=== PATIENT | female | born 1975 | race Hispanic/Latino ===

== ENCOUNTER 2024-01-31 15:08 | Emergency (ER) | payer MEDICAID, SELFPAY ==
--- NOTE | ~2024-01-31 | CT_ITS ---
EXAMINATION: CT abdomen pelvis w con DATE: 01/31/2024 18:00 INDICATION: LLQ/left pelvic pain; vag bleeding TECHNIQUE: Computed tomography (CT) of the abdomen and pelvis was performed with 100 mL Omnipaque-350 intravenous contrast. Automated exposure control and iterative reconstruction technique were employe d. The dose-length product was 782.45 mGy-cm. COMPARISON: 01/15/2024. FINDINGS: Lower thorax: Unremarkable Liver: Normal. Biliary/Gallbladder: Gallbladder is normal. No bile duct dilation. Pancreas: No mass or duct dilation. Spleen: Normal. Adrenals:No mass. Kidneys: No suspicious mass, obstructing stone, or hydronephrosis. GI tract: No small or large bowel dilation. Normal appendix. Mesentery/Peritoneum: No ascites, mass, or free air. Retroperitoneum: No mass. Atherosclerotic abdominal aortic and/or arterial calcifications. Pelvis: Pelvic organs are within normal limits. Simple appearing 1.4 cm left ovarian cyst. Soft Tissu es: Soft tissues and body wall unremarkable. Small uncomplicated fat-containing umbilical hernia. Bones: No acute osseous finding. IMPRESSION: No acute abdominopelvic process detected. Reviewed, dictated and finalized at location K.
[2024-01-31 15:12] VITALS: BP 118/67; PULSE 108; RESP 19; TEMP 36.8; O2SAT 96
--- NOTE | 2024-01-31 15:54 | ED.FEMALEGU ---
HPI - Female Genitourinary General Chief complaint: Vaginal Bleeding Stated complaint: vaginal bleeding Time Seen by Provider: 01/31/24 15:49 Source: patient and other (partner/support person) Limitations: language barrier (Croatian speaking) History of Present Illness HPI Narrative: (Attempted multiple times to get manager infrastructure software to work but network connection error thus interpretation done through patient's friend/support person and [employer] translate.) 48 yo female reports pain in her LLQ/left pelvis as well as dizziness since 01/26/24. Her LMP was 8/7 and stopped 01/22 and then vaginal bleeding restarted again 01/25. She has been soaking multiple pads. She changed her pad 6x since 09. She has been passing small clots. No dysuria. No prior colonoscopy. Related Data Allergies Allergy/AdvReac Type Severity Reaction Status Date / Time No Known Allergies Allergy Verified 01/31/24 15:31 Exam Narrative: GENERAL: Well-appearing, well-nourished, and in no acute distress. HEAD: Normocephalic, atraumatic. EYES: Non injected, non icteric ENT: Nares clear, no rhinorrhea or epistaxis. NECK: Supple. CHEST: Speaking in full sentences. No respiratory distress. HEART: Regular rate and rhythm. ABDOMEN: Soft, nondistended. : Mild TTP in left hemipelvis. No rigidity/guarding. Normal external genitalia. Some blood in vaginal vault. Normal vaginal mucosa. No CMT or adnexal motion tenderness. EXTREMITIES: Normal range of motion. No lower extremity edema. SKIN: Warm, dry, no rash. NEURO: No focal deficits. Alert and oriented x3. PSYCH: Normal mood and affect. Course Vital Signs Vital signs: Vital Signs Temperature 98.2 F 01/31/24 15:12 Pulse Rate 108 H 01/31/24 15:12 Respiratory Rate 19 01/31/24 15:12 Blood Pressure 118/67 01/31/24 15:12 Pulse Oximetry 96 01/31/24 15:12 Oxygen Delivery Room Air 01/31/24 15:12 Temperature 97.6 F 01/31/24 19:47 Pulse Rate 82 01/31/24 19:47 Respiratory Rate 18 01/31/24 19:47 Blood Pressure 115/76 01/31/24 19:47 Pulse Oximetry 98 01/31/24 19:47 Oxygen Delivery Room Air 01/31/24 15:12 MDM - Female Genitourinary MDM Narrative Medical decision making narrative: After obtaining the patient's history and performing a physical exam, a serum test was obtained which was negative for . She is a 48 year old who presents with vaginal bleeding most likely of non emergent etiology. In the ED she is afebrile with vital signs notable initially for tachycardia. She is not anemic. DIFFERENTIAL DIAGNOSIS The patient had a benign pelvic exam, patient's bleeding thought to be secondary to fibroids or other non emergent cause of abnormal uterine bleeding. Unlikely hemorrhagic cystitis: No dysuria, grossly visualized blood per vagina. Unlikely hypothyroidism: Normal TSH Unlikely coagulopathy: platelets normal Unlikely traumatic vaginal bleeding: pelvic exam shows no signs of trauma, no foreign body visualized. Unlikely PID: no Chandelier sign. Unlikely other infectious etiology: nonseptic appearance Also considered diverticulitis with colovaginal fistula: Imaging does not show evidence of this CT imaging negative for acute process but does show L simple ovarian cyst. Plan discharge home with return precautions, instructions for prompt outpatient follow up. Provided referral to an ObGyn. Provided Rx for acetaminophen and NSAID. STI swabs had initially been ordered to be run off of the urine but were not. They were collected as endocervical swabs but not processed until later. Will discharge after giving empiric dose of 500mg ceftriaxone and will follow up on the results after discharge. === Note: Swabs negative. Lab Data Attestation: I reviewed the patient's lab results. 01/31/24 16:00 01/31/24 16:00 Labs: Lab Results 01/31/24 01/31/24 01/31/24 Range/Units 16:00 16:23 16:24 WBC
[2024-01-31 16:07] LABS: Basophils Absolute Auto 0.1 K/mm3 (0.0-0.1); Basophils Percent Auto 0.6 % (0.2-1.2); Eosinophils Absolute Auto 0.1 K/mm3 (0-0.3); Hematocrit 38.2 % (37.0-47.0); Hemoglobin 12.3 g/dL (12.0-15.0); Immature Granulocyte Absolute 0.02 K/mm3 (0.00-0.031); Immature Granulocyte Percent A 0.3 % (0-0.5); Lymphocytes Absolute Auto 3.05 K/mm3 (0.9-3.2); Lymphocytes Percent Auto 39.6 % (18.3-44.2); Mean Corpuscular HGB Conc 32.2 g/dl (32-36); Mean Corpuscular Hemoglobin 27.7 pg (26-34); Mean Platelet Volume 9.4 fl (7.4-10.4); Monocytes Absolute Auto 0.5 K/mm3 (0.1-0.6); Monocytes Percent Auto 6.9 % (2.6-8.5); Neutrophils Percent Auto 51.6 % (45.5-73.1); Platelet Count Result 329 k/mm3 (150-375); Red Blood Count 4.44 M/mm3 (4.2-5.4); White Blood Count 7.7 K/mm3 (4.5-10.0)
[2024-01-31 16:19] LABS: Alanine Aminotransferase 15 U/L (6-35); Albumin Level 4.3 g/dL (3.5-5.1); Alkaline Phosphatase 77 U/L (38-126); Anion Gap 13 mmol/L (4-12); Aspartate Amino Transferase 21 U/L (14-36); Bilirubin,Total 0.1 mg/dL (0.2-1.3); Blood Urea Nitrogen 16 mg/dL (7-17); Calcium 9.1 mg/dL (8.4-10.2); Carbon Dioxide 22 mmol/L (22-30); Chloride 104 mmol/L (98-107); Estimated CRCL calculation 79 ml/min; Estimated Glomerular Filt Rate > 60; Glucose 100 mg/dL (65-110); Potassium 3.9 mmol/L (3.4-5.0); Sodium 139 mmol/L (137-145)
[2024-01-31 16:28] LABS: BEDSIDEPREGUCG Negative
[2024-01-31 16:36] LABS: Beta HCG Quantitative < 2.39 mIU/ML
[2024-01-31 16:38] LABS: Add Urine Microscopic? YES; Appearance Urine Clear (Clear); Bacteria Urine None Seen /hpf; Bilirubin Urine Negative (Negative); Blood Urine 3+ (Negative); Color Urine Yellow (Yellow); Glucose Urine UA Negative (Negative); Ketones Urine Trace mg/dL (Negative); Leukocyte Esterase Ur Negative LEU/UL (Negative); Nitrate Urine Negative (Negative); Non Pathogenic Casts 0-2; Protein Urine Negative (Negative); RBC Urine 21-50 /hpf (0-2); Specific Grav Ur 1.033 (1.001-1.035); Squamous Epithelial Cell Urine None Seen /hpf (Few); WBC Urine 0-5 /hpf (0-3)
[2024-01-31 17:05] LABS: Prothrombin Time 13.6 Seconds (11.1-14.7)
[2024-01-31 17:06] LABS: Partial Thromboplastin Time 28.5 Seconds (22.3-36.8)
[2024-01-31] MEDS: HYDROcodone/acetaminophen (*CRX) 5-325 MG TABLET 1 TAB PO (17:19)
[2024-01-31 17:28] LABS: CRP 0.6 mg/dL (<1.0)
[2024-01-31 17:32] VITALS: BP 107/66; PULSE 89; RESP 16; TEMP 36.9; O2SAT 100
[2024-01-31] MEDS: SODIUM CHLORIDE 0.9% IV 1,000 ML 999 ML IV CONT (17:34)
[2024-01-31 18:17] LABS: Erythrocyte Sedimentation Rate 16 mm/hr (0-20)
[2024-01-31] MEDS: cefTRIAXone 1 GM VIAL 0.5 GM IM (19:32)
[2024-01-31 19:47] VITALS: BP 115/76; PULSE 82; RESP 18; TEMP 36.4; O2SAT 98
[2024-01-31] MEDS: LIDOCAINE HCL 1% LOCAL INJ 10 ML VIAL (19:47)
[2024-01-31 19:55] LABS: Trichomonas Vag PCR NOT DETECTED (NOT DETECTE)
[2024-01-31 20:17] LABS: Chlamydia trachomatis NOT DETECTED (NOT DETECTE); Neisseria gonorrhoeae PCR NOT DETECTED (NOT DETECTE)
== END 2024-01-31 19:49 | disposition home or self-care (01) ==
PROVIDERS: Physician Assistant; Emergency Provider Student in an Organized Health Care Education/Training Program
DX: N93.9 Abnormal uterine and vaginal bleeding, unspecified (principal); N83.202 Unspecified ovarian cyst, left side
CPT/HCPCS: 36415; 74177; 80053; 81001; 81025; 84443; 84702; 85025; 85610; 85652; 85730; 86140; 87491; 87591; 87661; 96360; 96372; 99284; A9270; J0696; J7030; Q9967

== ENCOUNTER 2024-03-13 11:44 | Outpatient (CLI) | payer MEDICAID, SELFPAY ==
--- NOTE | ~2024-03-13 | US_ITS ---
EXAMINATION: US pelvic complete w TV DATE: 03/13/2024 12:11 INDICATION: EXCESSIVE MENSTRATION TECHNIQUE: Multiple transabdominal and endovaginal sonographic images of the pelvis were obtained. COMPARISON: CT abdomen and pelvis 01/31/2024. FINDINGS: Uterus: 6.5 x 3.1 x 4.8 cm. Retroflexed. Heterogeneous uterine parenchyma. Endometrial complex measur es 4 mm. Right Ovary: 1.5 x 1.3 x 1.3 cm. Vascular flow is present. No adnexal mass Left Ovary: 1.9 x 1.4 x 1.4 cm. Vascular flow is present. No adnexal mass There is small volume left adnexal free fluid in the pelvis, within physiologic range. IMPRESSION: Heterogeneous uterine parenchyma, as can be seen with adenomyosis in the appropriate clinical context . Reviewed, dictated and finalized at location K. IMPRESSION: Heterogeneous uterine parenchyma, as can be seen with adenomyosis in the approp riate clinical context.
== END 2024-03-13 11:45 | disposition home or self-care (01) ==
DX: N92.0 Excessive and frequent menstruation with regular cycle (principal)
CPT/HCPCS: 76830; 76856